=== PATIENT | male | born 1995 ===

== ENCOUNTER 2018-11-21 20:30 | Outpatient (REF) | payer MEDICARE, MEDICAID, SELFPAY ==
[2018-11-21 21:50] LABS: Vitamin D 25 Total 17.3 ng/ml (30-100)
== END 2018-11-21 20:50 ==
LOC: NCHCN 20:30
PROVIDERS: PCP Family Medicine; Visit Provider Family Medicine
DX: E55.9 Vitamin D deficiency, unspecified (principal)
CPT/HCPCS: 82306